=== PATIENT | male | born 1945 | race Caucasian/White ===

== ENCOUNTER 2017-09-01 07:52 | Emergency (ER) | payer OTHER, BC ==
[~2017-09-01] VITALS: Ht 177.8 cm; Wt 106.0 kg
[2017-09-01 08:00] VITALS: TEMP 36.3; Ht 177.8 cm; Wt 106.0 kg
[2017-09-01 08:35] VITALS: O2SAT 97
[2017-09-01 08:56] LABS: BASO % 0.5 %; BASO ABS # 0.03 K/uL (0-0.2); COMPLETE YES; EOS % 1.9 %; HEMATOCRIT 41.4 % (42-52); IG% 0.3 %; LYMPH % 25.2 %; LYMPH ABS # 1.57 K/uL (1.2-3.4); MEAN CORPUSCULAR HEMOGLOBIN 31.1 pg (25-34); MEAN CORPUSCULAR HGB CONC 34.5 g/dl (32-36); MEAN PLATELET VOLUME 11.2 fL (7.4-10.4); MONO % 10.7 %; NEUT % 61.4 %; PLATELET COUNT 161 K/uL (130-400); WHITE BLOOD COUNT 6.24 K/uL (4.8-10.8)
[2017-09-01 08:59] LABS: MANUAL MICROSCOPIC REQUIRED? YES; URINE APPEARANCE CLOUDY (CLEAR); URINE BILIRUBIN NEG (NEG); URINE COLOR RED; URINE NITRITE NEG (NEG); UROBILINOGEN NEG (NEG)
--- NOTE | 2017-09-01 08:59 | EMERGENCY ROOM VISIT NOTE ---
History Report prepared by Jacob: Yaya Artis Under the Supervision of: Dr. Shaun Altamirano M.D. First contact with patient: 08:06 Chief Complaint: HEMATURIA Stated Complaint: BLOOD IN URINE Nursing Triage Summary: pt reports blood in urine started on sunday and worse on sunday History of Present Illness The patient is a 72 year old male who presents to the Emergency Room with complaints of persistent hematuria for the past 4 days. He noticed his urine was brown four days ago, so he upped his fluid intake. By the next day his urine was red and became bright red two days ago. 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 He has a history of kidney stones. He has a history of atrial fibrillation and bariatric surgery. He is on daily Coumadin. He stopped taking the Coumadin two days ago. He notes having hematuria MISCELLANEOUS MACHINE OPERATOR. Source of History: patient Onset: 4 days MISCELLANEOUS MACHINE OPERATOR Position: other (urinary system) Timing: other (persistent) Associated Symptoms: + urinary symptoms, No abdominal pain Note: He notes pressure in his abdomen and back. He notes "movement inside my penis" Review of Systems See HPI for pertinent positives & negatives. A total of 10 systems reviewed and were otherwise negative. Past Medical & Surgical Medical Problems: (1) Atrial fibrillation (2) Kidney stones Surgical Problems: (1) History of bariatric surgery (2) History of gastric bypass Social History Smoking Status: Never Smoker Alcohol Use: occasionally Drug Use: none Marital Status: Housing Status: lives with family Occupation Status: retired Current/Historical Medications Scheduled Aspirin (Aspirin Ec), 81 MG PO DAILY Ciprofloxacin Hcl (Cipro), 1 TAB PO BID Temazepam (Restoril), 15-30 MG PO HS Warfarin Sod (Jantoven), 5 MG PO DAILY Warfarin Sod (Jantoven), 2 MG PO DAILY Allergies Coded Allergies: No Known Allergies (Unverified , 09/01/17) Physical Exam Vital Signs Date Time Temp Pulse Resp B/P (MAP) Pulse Ox O2 Delivery O2 Flow Rate FiO2 09/01/17 10:56 80 18 180/99 99 09/01/17 08:35 97 Room Air 09/01/17 08:27 70 09/01/17 08:00 36.3 83 18 168/99 97 Room Air Physical Exam GENERAL: Patient is a healthy-appearing well-nourished 72 year old male. HEAD: Normocephalic atraumatic EYES: Ocular movements intact pupils equal and react to light OROPHARYNX mucous membranes are moist no exudates present no erythema or edema present NECK: Supple no nuchal rigidity CHEST: Good equal expansion LUNGS: Clear and equal to auscultation CARDIAC: Normal S1 and S2 ABDOMEN: Soft nontender no guarding BACK: No CVA tenderness EXTREMITIES: No pain upon palpation normal muscle strength in all groups no clubbing cyanosis or edema NEURO: Patient is following commands and answering questions appropriately. Alert and oriented x3 Cranial Nerves 2-12 grossly intact Medical Decision & Procedures ER Provider Diagnostic Interpretation: Radiology results as stated below per my review and radiologist interpretation: KUB CLINICAL HISTORY: Kidney stone. COMPARISON STUDY: None. FINDINGS: Note is made of a gastric lap band. Bowel gas pattern is normal. There is a 4 mm suspected right renal calculus. No ureteral calculi are identified. IMPRESSION: Probable 4 mm right renal calculus. No ureteral calculi identified. Electronically signed by: Edmundo Kapoor M.D. 09/01/2017 9:25 AM RENAL ULTRASOUND CLINICAL HISTORY: Kidney stone. COMPARISON STUDY: KUB performed earlier today. TECHNIQUE: Sonography of the kidneys and the urinary bladder was performed. FINDINGS: The right kidney measures 11.6 x 5.6 x 5.1 cm and the left measures 11.3 x 4.7 x 4.4 cm. There is no hydronephrosis. Note is made of several renal cysts, the largest of which is a 4.2 cm right sided cyst which could reflect a cortical or parapelvic cyst. No renal calculi are identified by sonography. The right ureteral jet was not identified. Note was made of a 1.1 cm echogenic focus within the left posterior aspect of the bladder. IMPRESSION: 1. No hydronephrosis. 2. 1.1 cm echogenic focus within the dependent aspect of the bladder which favors a bladder calculus. A ureterovesical junction calculus could appear similar although is considered less likely. 3. Several bilateral renal cysts. Electronically signed by: Edmundo Kapoor M.D. 09/01/2017 10:11 AM Laboratory Results 09/01/17 08:35 Red Blood Count 4.60, Mean Corpuscular Volume 90.0, Mean Corpuscular Hemoglobin 31.1, Mean Corpuscular Hemoglobin Concent 34.5, Mean Platelet Volume 11.2, Neutrophils (%) (Auto) 61.4, Lymphocytes (%) (Auto) 25.2, Monocytes (%) (Auto) 10.7, Eosinophils (%) (Auto) 1.9, Basophils (%) (Auto) 0.5, Neutrophils # (Auto ) 3.83, Lymphocytes # (Auto) 1.57, Monocytes # (Auto) 0.67, Eosinophils # (Auto ) 0.12, Basophils # (Auto) 0.03 09/01/17 08:35 Test 09/01/17 08:25 09/01/17 08:35 09/01/17 09:26 Urine Color RED Urine Appearance CLOUDY (CLEAR) Urine pH 7.0 (4.5-7.5) Urine Specific [place] 1.020 (1.000-1.030) Urine Protein 1+ (NEG) Urine Glucose (UA) NEG (NEG) Urine Ketones NEG (NEG) Urine Occult Blood 3+ (NEG) Urine Nitrite NEG (NEG) Urine Bilirubin NEG (NEG) Urine Urobilinogen NEG (NEG) Urine Leukocyte Esterase NEG (NEG) Urine RBC >30 /hpf (0-4) Urine WBC 1-5 /hpf (0-5) Urine Epithelial Cells 0-5 /lpf (0-5) Urine Bacteria NEG (NEG) White Blood Count 6.24 K/uL (4.8-10.8) Red Blood Count 4.60 M/uL (4.7-6.1) Hemoglobin 14.3 g/dL (14.0-18.0) Hematocrit 41.4 % (42-52) Mean Corpuscular Volume 90.0 fL (80-100) Mean Corpuscular Hemoglobin 31.1 pg (25-34) Mean Corpuscular Hemoglobin Concent 34.5 g/dl (32-36) Platelet Count 161 K/uL (130-400) Mean Platelet Volume 11.2 fL (7.4-10.4) Neutrophils (%) (Auto) 61.4 % Lymphocytes (%) (Auto) 25.2 % Monocytes (%) (Auto) 10.7 % Eosinophils (%) (Auto) 1.9 % Basophils (%) (Auto) 0.5 % Neutrophils # (Auto) 3.83 K/uL (1.4-6.5) Lymphocytes # (Auto) 1.57 K/uL (1.2-3.4) Monocytes # (Auto) 0.67 K/uL (0.11-0.59) Eosinophils # (Auto) 0.12 K/uL (0-0.5) Basophils # (Auto) 0.03 K/uL (0-0.2) RDW Standard Deviation 45.7 fL (36.4-46.3) RDW Coefficient of Variation 13.9 % (11.5-14.5) Immature Granulocyte % (Auto) 0.3 % Immature Granulocyte # (Auto) 0.02 K/uL (0.00-0.02) Anion Gap 7.0 mmol/L (3-11) Est Creatinine Clear Calc Drug Dose 95.0 ml/min Estimated GFR () 100.6 Estimated GFR (Non- 86.8 BUN/Creatinine Ratio 24.3 (10-20) Calcium Level 9.8 mg/dl (8.5-10.1) Total Bilirubin 1.0 mg/dl (0.2-1) Direct Bilirubin 0.2 mg/dl (0-0.2) Aspartate Amino Transf (AST/SGOT) 19 U/L (15-37) Alanine Aminotransferase (ALT/SGPT) 16 U/L (12-78) Alkaline Phosphatase 87 U/L (45-117) Total Protein 7.2 gm/dl (6.4-8.2) Albumin 3.6 gm/dl (3.4-5.0) Lipase 194 U/L (73-393) Prothrombin Time 26.7 SECONDS (9.0-12.0) Prothromb Time International Ratio 2.4 (0.9-1.1) Total Creatine Kinase 45 U/L (39-308) Labs reviewed by ED physician. Medications Administered Medications (Trade) Dose Ordered Sig/Sundeep Route Start Time Stop Time Status Last Admin Dose Admin Ciprofloxacin (Cipro Tab) 500 mg NOW STAT PO 09/01/17 10:38 09/01/17 10:39 DC 09/01/17 10:44 500 MG ECG Indication: abdominal pain Rate (beats per minute): 71 Rhythm: atrial fibrillation Findings: T-wave inversion (Inferior), no acute ischemic change ED Course 0814: Past medical records reviewed. The patient was evaluated in room A12. A complete history and physical examination was performed. 1038: Cipro 500 mg PO. 1050: I reevaluated the patient. He is feeling well and resting. I discussed his results and discharge instructions and he verbalized complete understanding and agreement. Medical Decision Prior records/ancillary studies reviewed. Triage Nursing notes reviewed. The patient's history was concerning for hematuria Differential diagnosis: Etiologies such as renal colic, appendicitis, diverticulitis, mesenteric ischemia, aortic pathology, infections, inflammatory bowel disease, PUD, biliary pathology, UTI, as well as others were entertained. This is a 72-year-old female who presents emergency department complaining of hematuria. The patient has history of kidney stones in the past also on Coumadin. I will and his Coumadin level is therapeutic. A urine sample was obtained which did show red blood cells. I will place patient on Cipro pending urine culture results. In addition the patient was sent for ultrasound of his kidneys and bladder. This was concerning for a stone in his bladder which I suspect is causing the bleeding. I recommended that the patient follow-up with the urologist at home. Patient was in agreement with the treatment plan. Medication Reconcilliation Current Medication List: was personally reviewed by me Blood Pressure Screening Patient's blood pressure: Elevated blood pressure Blood pressure disposition: Referred to PCP Impression Primary Impression: Bladder calculi Additional Impression: Hematuria Scribe Attestation The scribe's documentation has been prepared under my direction and personally reviewed by me in its entirety. I confirm that the note above accurately reflects all work, treatment, procedures, and medical decision making performed by me. Departure Information Dispostion Home / Self-Care Prescriptions Ciprofloxacin Hcl (CIPRO) 500 Mg Tab 1 TAB PO BID for 10 Days, #20 TAB Prov: Shaun Altamirano MD 09/01/17 Referrals No Doctor, Assigned (PCP) Patient Instructions ED Hematuria, Hematuria Poss Causes, [facility] Additional Instructions INR= 2.4 Need follow up with urology at home You were found to have an elevated blood pressure today (>120 sytolic or >90 diastolic). Per medicare guidelines, you need to follow up with this blood pressure screening with your Primary Care Physician (PCP). For a new PCP call [phone]. Culture results are usually available in approx 48 hours You have been examined and treated today on an emergency basis only. This is not a substitute for, or an effort to provide, complete comprehensive medical care. It is impossible to recognize and treat all injuries or illnesses in a single emergency department visit. It is therefore important that you follow up closely with your PCP. Call as soon as possible for an appointment. Thank you for your time and consideration. I look forward to speaking with you again soon. Please don't hesitate to call us if you have any questions. Problem Qualifiers Additional Impression: Hematuria Hematuria type: unspecified type Qualified Codes: R31.9 - Hematuria, unspecified
[2017-09-01 09:05] LABS: REVIEW REQ? NO
[2017-09-01 09:07] LABS: BUN/CREATININE RATIO 24.3 (10-20); CALCIUM 9.8 mg/dl (8.5-10.1); CREATININE 0.87 mg/dl (0.60-1.40); POTASSIUM 3.9 mmol/L (3.5-5.1)
[2017-09-01 09:08] LABS: URINE BACTERIA NEG (NEG); URINE RBC >30 /hpf (0-4); ZZUR CULT IF INDIC CLEAN CATCH NO
[2017-09-01] MEDS ORDERED: ASPI81TA28 PO (09:18)
[2017-09-01] MEDS ORDERED: WARF1TAB6 PO (09:18)
[2017-09-01] MEDS ORDERED: TEMA15CA4 PO (09:18)
[2017-09-01] MEDS ORDERED: WARF5TAB7 PO (09:18)
--- NOTE | 2017-09-01 09:26 | DIAGNOSTIC IMAGING REPORT ---
KUB CLINICAL HISTORY: Kidney stone. COMPARISON STUDY: None. FINDINGS: Note is made of a gastric lap band. Bowel gas pattern is normal. There is a 4 mm suspected right renal calculus. No ureteral calculi are identified. IMPRESSION: Probable 4 mm right renal calculus. No ureteral calculi identified. Electronically signed by: Edmundo Kapoor M.D. 09/01/2017 9:25 AM Dictated Date/Time: 09/01/2017 9:16 AM
[2017-09-01 09:45] LABS: INR 2.4 (0.9-1.1); PROTHROMBIN TIME (PATIENT) 26.7 SECONDS (9.0-12.0)
--- NOTE | 2017-09-01 10:12 | DIAGNOSTIC IMAGING REPORT ---
RENAL ULTRASOUND CLINICAL HISTORY: Kidney stone. COMPARISON STUDY: KUB performed earlier today. TECHNIQUE: Sonography of the kidneys and the urinary bladder was performed. FINDINGS: The right kidney measures 11.6 x 5.6 x 5.1 cm and the left measures 11.3 x 4.7 x 4.4 cm. There is no hydronephrosis. Note is made of several renal cysts, the largest of which is a 4.2 cm right sided cyst which could reflect a cortical or parapelvic cyst. No renal calculi are identified by sonography. The right ureteral jet was not identified. Note was made of a 1.1 cm echogenic focus within the left posterior aspect of the bladder. IMPRESSION: 1. No hydronephrosis. 2. 1.1 cm echogenic focus within the dependent aspect of the bladder which favors a bladder calculus. A ureterovesical junction calculus could appear similar although is considered less likely. 3. Several bilateral renal cysts. Electronically signed by: Edmundo Kapoor M.D. 09/01/2017 10:11 AM Dictated Date/Time: 09/01/2017 10:07 AM
[2017-09-01] MEDS ORDERED: CIPROFLOXACIN 500 MG TAB PO STA (10:38)
[2017-09-01] MEDS ORDERED: CIPR-255 PO (10:42)
[2017-09-01 10:56] VITALS: BP 180/99; PULSE 80; O2SAT 99
== END 2017-09-01 10:56 | disposition home or self-care (01) ==
LOC: C.EDB 07:55 → C.EDA 10:56
DX: N21.0 Calculus in bladder (principal); R31.9 Hematuria, unspecified; I48.91 Unspecified atrial fibrillation; Z87.442 Personal history of urinary calculi; Z98.84 Bariatric surgery status; Z79.82 Long term (current) use of aspirin; Z79.01 Long term (current) use of anticoagulants